=== PATIENT | female | born 1930 | race Caucasian/White ===

== ENCOUNTER 2016-07-29 04:51 | Day surgery (SDC) | payer MEDICARE, OTHER ==
[~2016-07-29 04:51] MED LIST: ACET500CAP PO; B121000P IM; CALTRA600D PO; CARDIZEM LA180 MG PO; CENTRUM PO; CENTRUM TAB1 TAB PO; HYZAAR1 TAB PO; LEVOTHYROXIN50 MCG PO; SYN.025B PO; [UNRECOGNIZED DRUG - REMARK]
== END 2016-07-29 09:28 | disposition home or self-care (01) ==
LOC: SDC 04:51
PROVIDERS: Orthopaedic Surgery
PROC: 3E0R3BZ Introduction of Anesthetic Agent into Spinal Canal, Percutaneous Approach (ICD-10-PCS; 2016-07-29)
PROC: B01BYZZ Fluoroscopy of Spinal Cord using Other Contrast (ICD-10-PCS; 2016-07-29)
PROC: 3E0R33Z Introduction of Anti-inflammatory into Spinal Canal, Percutaneous Approach (ICD-10-PCS; principal; 2016-07-29 07:30)
DX: M54.16 Radiculopathy, lumbar region (principal); E03.9 Hypothyroidism, unspecified; Z88.5 Allergy status to narcotic agent; Z88.8 Allergy status to other drugs, medicaments and biological substances; Z98.41 Cataract extraction status, right eye; Z98.42 Cataract extraction status, left eye; Z98.890 Other specified postprocedural states; Z96.1 Presence of intraocular lens
CPT/HCPCS: J1040; J2250; J3010; Q9967

== ENCOUNTER 2016-08-11 04:38 | Day surgery (SDC) | payer MEDICARE, OTHER | END 2016-08-11 08:14 | disposition home or self-care (01) | LOC: SDC 04:38 | PROVIDERS: Orthopaedic Surgery | PROC: 3E0R3BZ Introduction of Anesthetic Agent into Spinal Canal, Percutaneous Approach (ICD-10-PCS; 2016-08-11) | PROC: B01BYZZ Fluoroscopy of Spinal Cord using Other Contrast (ICD-10-PCS; 2016-08-11) | PROC: 3E0R33Z Introduction of Anti-inflammatory into Spinal Canal, Percutaneous Approach (ICD-10-PCS; principal; 2016-08-11 07:30) | DX: M54.16 Radiculopathy, lumbar region (principal); Z79.899 Other long term (current) drug therapy; Z88.5 Allergy status to narcotic agent; Z79.52 Long term (current) use of systemic steroids; Z98.41 Cataract extraction status, right eye; Z98.42 Cataract extraction status, left eye; Z98.890 Other specified postprocedural states | CPT/HCPCS: J1040; J2250; J3010; Q9967 ==